=== PATIENT | male | born 1990 | race Hispanic/Latino ===

== ENCOUNTER 2018-08-13 14:51 | Outpatient (CLI) | payer BC ==
--- NOTE | 2018-08-13 16:34 | CT ---
FCT abdomen and pelvis without IV contrast. Oral contrast was not administered. INDICATIONS: Hematuria. Right abdominal pain. COMPARISON: None FINDINGS: Lung bases are clear Liver, spleen, and pancreas appear unremarkable. Stomach and duodenum appear unremarkable. Adrenal glands appear normal. Mild fullness of the right renal collecting structures. There is an obstructing calculus in the proxi mal right ureter measuring 4 to 5 mm. Left urinary tract unremarkable Small bowel loops are normal caliber and exhibit normal fold pattern. Appendix is identified and appears unremarkable. Colon is unremarkable. Aorta is normal caliber. No evidence of retroperitoneal or mesenteric adenopathy. Pelvic structures appear unremarkable. Subcutaneous tissues, abdominal wall, and muscular structures appear unremarkable. Osseous structures appear unremarkable. IMPRESSION: 4 to 5 mm obstructing calculus proximal right ureter
== END 2018-08-13 14:52 | disposition home or self-care (01) ==
LOC: BICCT 14:51
PROVIDERS: ATTEND Family Medicine
DX: R31.0 Gross hematuria (principal); N20.1 Calculus of ureter
CPT/HCPCS: 74176

== ENCOUNTER 2018-08-21 08:20 | Outpatient (CLI) | payer BC ==
--- NOTE | 2018-08-21 08:42 | RAD ---
FKUB: 08/21/2018 HISTORY: Renal stone disease noted on prior CT examination Correlation is made to CT of abdomen and pelvis performed 08/13/2018 FINDINGS: Recent CT examination demonstrated a stone within the mid right ureter at the axial level o f the L4-5 intervertebral disc space. On this examination, no calcification is seen at that level. Th ere is a calcification which overlies the right sacral ala just inferior and lateral to the right S2 foramen measuring in the 3-4 mm range which likely represents previously noted stone demonstrating so me distal migration. The bowel gas pattern appears nonobstructive. No additional calcification seen i n the abdomen/pelvis. IMPRESSION: 3-4 mm calcification overlying the right sacral ala likely represents distal progression of previously noted stone within mid right ureter as above.
== END 2018-08-21 08:21 | disposition home or self-care (01) ==
LOC: BICRAD 08:20
PROVIDERS: ATTEND Urology
DX: N20.0 Calculus of kidney (principal); M53.3 Sacrococcygeal disorders, not elsewhere classified
CPT/HCPCS: 74018; 81001

== ENCOUNTER 2018-09-30 12:47 | Outpatient (CLI) | payer BC ==
--- NOTE | 2018-09-30 13:19 | RAD ---
Exam: 1 view abdomen COMPARISON: 08/21/2018 HISTORY: Renal calculi FINDINGS: Nonspecific bowel gas pattern. No suspicious densities in the abdomen or pelvis. No pneumop eritoneum on this supine projection. Previously noted calculus along course of the distal right ureter is not appreciated. IMPRESSION: No radiographic evidence of nephrolithiasis or ureterolithiasis
--- NOTE | 2018-09-30 14:18 | ULT ---
Exam: Bilateral renal ultrasound HISTORY: Renal calculi. Renal colic. COMPARISON: None FINDINGS: Right kidney: Normal cortical echotexture. No hydronephrosis. Right kidney measurements: 10.8 x 5.7 x 6.7 cm. Left kidney: Normal cortical echotexture. No hydronephrosis Left kidney measurements 5.9 x 6.3 x 12.1 cm. Urinary bladder: Normal mucosa. IMPRESSION: No hydronephrosis.
== END 2018-09-30 12:48 | disposition home or self-care (01) ==
LOC: ULT 12:47
PROVIDERS: ATTEND Urology
DX: N20.1 Calculus of ureter (principal); N23 Unspecified renal colic
CPT/HCPCS: 74018; 76770; 81001; 87086

== ENCOUNTER 2022-02-09 20:14 | Inpatient (IN) | payer BC ==
[~2022-02-09 20:14] MED LIST: Iopamidol-370 76% 500 ML 1 ML ONE
[2022-02-09 20:57] LABS: #Lymphocytes 2.6 thou/uL (1.20-3.40); #Monocytes 1.4 thou/uL (0.11-0.59); #Neutrophils 12.5 thou/uL (1.40-6.50); %Basophils 0.3 % (0.0-1.0); %Eosinophils 0.3 % (0.0-10.0); %Lymphocytes 15.7 % (21.0-51.0); %Monocytes 8.5 % (0.0-10.0); %Neutrophils 75.2 % (42.0-75.0); Hemoglobin 16.6 g/dL (14.0-18.0); Mean Corpuscular Hemoglobin 32.7 pg (27.0-31.0); Mean Corpuscular Volume 90.7 fL (78.0-98.0); Mean Platelet Volume 10.4 fL (7.4-10.4); Platelet Count 191 thou/uL (130-400); RBC Distribution Width 11.5 % (11.5-14.5); Red Blood Cell (RBC) Count 5.07 mill/uL (4.70-6.10); White Blood Cell (WBC) Count 16.6 thou/uL (4.8-10.8)
[2022-02-09 21:19] LABS: ALT (SGPT) 53 U/L (8-55); AST (SGOT) 24 U/L (5-34); Albumin 4.7 g/dL (3.5-5.0); Alkaline Phosphatase 92 U/L (40-110); Anion Gap 16 mmol/L (10-20); BUN (Urea Nitrogen) 15 mg/dL (8.9-20.6); Bilirubin, Total 1.3 mg/dL (0.2-1.2); Calc. Creatinine Clearance 0 mL/min (70-130); Calcium 9.8 mg/dL (7.8-10.44); Carbon Dioxide 19 mmol/L (22-29); Chloride 102 mmol/L (98-107); Estimated GFR 118; Globulin 3.2 g/dL (2.4-3.5); Glucose 249 mg/dL (70-105); Lipase 54 U/L (8-78); Potassium 4.1 mmol/L (3.5-5.1); Protein, Total 7.9 g/dL (6.0-8.3); Sodium 133 mmol/L (136-145)
[2022-02-09] MEDS ORDERED: Ondansetron ODT 4 MG TAB ONE (23:58)
[2022-02-10] MEDS ORDERED: Morphine 4 MG/ML VIAL SLOW IVP PRN (00:43)
[2022-02-10] MEDS ORDERED: Ondansetron ODT 4 MG TAB SL PRN (00:45)
[2022-02-10] MEDS ORDERED: Sodium Chloride 0.9% 1,000 ML IV SCH (00:45)
[2022-02-10] MEDS ORDERED: Ondansetron PF 4 MG/2 ML Vial IVP PRN ×2 (00:45→08:09)
[2022-02-10 01:08] VITALS: BMI 34.4
[2022-02-10] MEDS ORDERED: metroNIDAZOLE 500 MG in Premix Bag 1 BAG IVPB SCH (02:00)
[2022-02-10] MEDS ORDERED: Ondansetron ODT 4 MG TAB PO PRN (08:09)
[2022-02-10] MEDS ORDERED: Calcium Carbonate 500 MG ChewTAB PO PRN (08:09)
[2022-02-10] MEDS ORDERED: HYDROcodone/Acetaminophen 5/325 mg Tablet PO PRN ×2 (08:09→08:14)
[2022-02-10] MEDS ORDERED: Morphine 2 MG/ML VIAL SLOW IVP PRN (08:14)
[2022-02-10] MEDS ORDERED: Dextrose 50% Abboject 50 ML SYRINGE SLOW IVP PRN (08:15)
[2022-02-10] MEDS ORDERED: Insulin Regular 300 UNITS/3 ML VIAL SC PRN ×2 (08:15)
[2022-02-10] MEDS ORDERED: Dextrose 5% in Water 1,000 ML IV PRN (08:15)
[2022-02-10 08:29] LABS: #Lymphocytes 1.9 thou/uL (1.20-3.40); #Monocytes 1.9 thou/uL (0.11-0.59); #Neutrophils 13.9 thou/uL (1.40-6.50); %Basophils 0.1 % (0.0-1.0); %Eosinophils 0.2 % (0.0-10.0); %Lymphocytes 10.9 % (21.0-51.0); %Monocytes 10.7 % (0.0-10.0); %Neutrophils 78.1 % (42.0-75.0); Hemoglobin 15.1 g/dL (14.0-18.0); Mean Corpuscular HGB CONC 34.6 g/dL (32.0-36.0); Mean Corpuscular Volume 92.6 fL (78.0-98.0); Mean Platelet Volume 10.2 fL (7.4-10.4); Platelet Count 163 thou/uL (130-400); RBC Distribution Width 11.5 % (11.5-14.5); Red Blood Cell (RBC) Count 4.71 mill/uL (4.70-6.10); White Blood Cell (WBC) Count 17.8 thou/uL (4.8-10.8)
[2022-02-10 08:48] LABS: Anion Gap 15 mmol/L (10-20); BUN (Urea Nitrogen) 12 mg/dL (8.9-20.6); Calc. Creatinine Clearance 177 mL/min (70-130); Carbon Dioxide 20 mmol/L (22-29); Chloride 101 mmol/L (98-107); Estimated GFR 120; Glucose 217 mg/dL (70-105); Potassium 3.6 mmol/L (3.5-5.1); Sodium 132 mmol/L (136-145)
[2022-02-10] MEDS: Sodium Chloride 0.9% 1,000 ML IV SCH ×3 (09:01→20:12)
[2022-02-10] MEDS: metroNIDAZOLE 500 MG in Premix Bag 1 BAG IVPB SCH ×2 (09:02→17:48)
[2022-02-10] MEDS: Acetaminophen 325 MG TAB PO PRN ×2 (09:03→16:00)
[2022-02-10] MEDS: Famotidine 20 MG TAB PO SCH ×2 (09:03→20:12)
[2022-02-10] MEDS ORDERED: glipiZIDE 5 MG TAB PO SCH (09:30)
[2022-02-10] MEDS: glipiZIDE 5 MG TAB PO SCH (15:57)
[2022-02-11] MEDS: metroNIDAZOLE 500 MG in Premix Bag 1 BAG IVPB SCH ×3 (01:41→17:20)
[2022-02-11] MEDS: Acetaminophen 325 MG TAB PO PRN ×4 (01:45→23:42)
[2022-02-11 06:19] LABS: #Eosinphils 0.1 thou/uL (0.0-0.7); #Lymphocytes 2.6 thou/uL (1.20-3.40); #Monocytes 1.3 thou/uL (0.11-0.59); #Neutrophils 8.9 thou/uL (1.40-6.50); %Basophils 0.3 % (0.0-1.0); %Eosinophils 1.1 % (0.0-10.0); %Lymphocytes 19.7 % (21.0-51.0); %Monocytes 10.1 % (0.0-10.0); %Neutrophils 68.8 % (42.0-75.0); Hemoglobin 13.7 g/dL (14.0-18.0); Mean Corpuscular HGB CONC 33.5 g/dL (32.0-36.0); Mean Corpuscular Volume 95.8 fL (78.0-98.0); Mean Platelet Volume 10.3 fL (7.4-10.4); Platelet Count 163 thou/uL (130-400); RBC Distribution Width 11.4 % (11.5-14.5); Red Blood Cell (RBC) Count 4.29 mill/uL (4.70-6.10); White Blood Cell (WBC) Count 12.9 thou/uL (4.8-10.8)
[2022-02-11 06:38] LABS: ALT (SGPT) 28 U/L (8-55); AST (SGOT) 14 U/L (5-34); Albumin 3.8 g/dL (3.5-5.0); Alkaline Phosphatase 50 U/L (40-110); Anion Gap 11 mmol/L (10-20); BUN (Urea Nitrogen) 8 mg/dL (8.9-20.6); Bilirubin, Total 1.3 mg/dL (0.2-1.2); Calc. Creatinine Clearance 166 mL/min (70-130); Calcium 8.7 mg/dL (7.8-10.44); Carbon Dioxide 25 mmol/L (22-29); Chloride 104 mmol/L (98-107); Estimated GFR 118; Globulin 2.9 g/dL (2.4-3.5); Glucose 142 mg/dL (70-105); Potassium 3.8 mmol/L (3.5-5.1); Protein, Total 6.7 g/dL (6.0-8.3); Sodium 136 mmol/L (136-145)
[2022-02-11] MEDS ORDERED: glipiZIDE 5 MG TAB PO SCH (07:30)
[2022-02-11] MEDS: Famotidine 20 MG TAB PO SCH ×2 (09:10→21:19)
[2022-02-11] MEDS: glipiZIDE 5 MG TAB PO SCH ×2 (09:10→17:20)
[2022-02-11] MEDS: Sodium Chloride 0.9% 1,000 ML IV SCH ×2 (09:10→14:08)
[2022-02-12] MEDS: metroNIDAZOLE 500 MG in Premix Bag 1 BAG IVPB SCH ×2 (02:39→09:11)
[2022-02-12 06:54] LABS: #Basophils 0.1 thou/uL (0.0-0.2); #Eosinphils 0.2 thou/uL (0.0-0.7); #Lymphocytes 2.7 thou/uL (1.20-3.40); #Monocytes 0.8 thou/uL (0.11-0.59); #Neutrophils 5.1 thou/uL (1.40-6.50); %Basophils 0.8 % (0.0-1.0); %Eosinophils 2.1 % (0.0-10.0); %Lymphocytes 30.8 % (21.0-51.0); %Monocytes 8.6 % (0.0-10.0); %Neutrophils 57.7 % (42.0-75.0); Hemoglobin 15.3 g/dL (14.0-18.0); Mean Corpuscular HGB CONC 34.7 g/dL (32.0-36.0); Mean Corpuscular Volume 95.2 fL (78.0-98.0); Mean Platelet Volume 9.2 fL (7.4-10.4); Platelet Count 215 thou/uL (130-400); RBC Distribution Width 11.4 % (11.5-14.5); Red Blood Cell (RBC) Count 4.62 mill/uL (4.70-6.10); White Blood Cell (WBC) Count 8.8 thou/uL (4.8-10.8)
[2022-02-12 07:18] LABS: Anion Gap 12 mmol/L (10-20); BUN (Urea Nitrogen) 9 mg/dL (8.9-20.6); Calc. Creatinine Clearance 181 mL/min (70-130); Carbon Dioxide 25 mmol/L (22-29); Chloride 105 mmol/L (98-107); Estimated GFR 121; Glucose 151 mg/dL (70-105); Sodium 138 mmol/L (136-145)
[2022-02-12] MEDS: Famotidine 20 MG TAB PO SCH (09:11)
[2022-02-12] MEDS: glipiZIDE 5 MG TAB PO SCH (09:11)
[2022-02-12] MEDS: Sodium Chloride 0.9% 1,000 ML IV SCH (09:12)
[2022-02-12] MEDS: Acetaminophen 325 MG TAB PO PRN (09:16)
[2022-02-12 11:25] VITALS: BP 112/79; TEMP 98.4
== END 2022-02-12 15:23 | disposition home or self-care (01) | DRG 872 ==
LOC: ERS 20:14 → T4-B 23:19
PROVIDERS: ADMIT Internal Medicine; ATTEND Internal Medicine
DX: A41.9 Sepsis, unspecified organism (principal); Z20.822 Contact with and (suspected) exposure to COVID-19; K57.32 Diverticulitis of large intestine without perforation or abscess without bleeding; E87.1 Hypo-osmolality and hyponatremia; K57.20 Diverticulitis of large intestine with perforation and abscess without bleeding; E87.2 Acidosis; E78.5 Hyperlipidemia, unspecified; E11.9 Type 2 diabetes mellitus without complications; E66.9 Obesity, unspecified; K76.0 Fatty (change of) liver, not elsewhere classified; Z68.34 Body mass index [BMI] 34.0-34.9, adult; Z79.899 Other long term (current) drug therapy; Z83.3 Family history of diabetes mellitus
CPT/HCPCS: 36415; 36416; 74177; 80048; 80053; 82550; 83605; 83690; 83735; 85025; 87040; 93005; 96374; J1956; J2270; J7050; Q0162; Q9967; U0003; U0005